=== PATIENT | male | born 1975 | race Caucasian/White ===

== ENCOUNTER 2021-10-15 14:30 | Inpatient (IN) | payer MEDICAID, SELFPAY ==
[2021-10-15 14:35] VITALS: BP 209/179; PULSE 103; RESP 20; TEMP 37.1; O2SAT 98; BMI 21.9
[2021-10-15 14:48] VITALS: BP 157/111; PULSE 110; RESP 20; O2SAT 97
--- NOTE | 2021-10-15 14:53 | ECG_ITS ---
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 Measurements Intervals [place] Rate: 95 P: 70 LA: 118 QRS: 63 QRSD: 110 T: 71 QT: 340 QTc: 429 Interpretive Statements SINUS RHYTHM WITH SHORT LA INTERVAL Compared to ECG 11/17/2017 08:53:02 Short LA interval now present Intraventricular conduction delay no longer present Electronically Signed On 10-15-2021 18:38:09 CDT by Angelita Moulton M.D. [id number]
[2021-10-15 14:55] LABS: Basophils # 0.1 10^3/uL (0.0-0.1); Basophils % 0.8 %; Eosinophils # 0.3 10^3/uL (0.0-0.8); Eosinophils % 3.4 %; Hematocrit 42.9 % (42.0-52.0); Hemoglobin 14.7 g/dL (11.7-16.6); Lymphocytes % 23.8 %; Mean Corpuscular HGB Conc 34.3 g/dL (30.0-36.0); Mean Corpuscular Hemoglobin 33.2 pg (28.0-34.0); Mean Corpuscular Volume 96.8 fl (80-94); Mean Platelet Volume 9.3 fL (7.4-10.4); Monocytes # 0.7 10^3/uL (0.2-0.9); Monocytes % 8.9 %; Nucleated Red Blood Cells % 0 %; Platelet Count 289 10^3/cmm (130-400); Red Blood Count 4.43 10^6/uL (4.1-5.3); Red Cell Distribution Width 12.6 % (12.1-15.1); White Blood Count 8.3 10^3/uL (4.0-10.0)
--- NOTE | 2021-10-15 14:55 | ED.C_ITS ---
HPI - Psych General: Chief Complaint: Psychiatric Symptoms Stated Complaint: PSYCH EVAL Time Seen by Provider: 10/15/21 14:31 Source: patient, EMS and police Mode of arrival: EMS Limitations: no limitations History of Present Illness: This patient was transported via EMS with police escort due to bizarre behavior. Police were called to the scene and found the patient in a parking lot of a deserted building making many nonsensical statements and alleging that he was involved with homeland security and other similar pro proclamation's. Police also noted that he was waving around what appeared to be a handgun. He complied with the request that he put the object down which was later discovered to be a air soft CO2 pistol. And still continued to make rather bizarre statements for which they have provided an affidavit. They notified EMS who arrived on scene and assisted with transportation to the emergency department. The patient states to me that he left [facility] in route to [facility]. States he was headed to [place] as well to visit family prior to leaving for [place]. 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 He does admit to having mental health issues with prior hospitalizations. He states he has been taking his Seroquel is clonazepam as well as 1 other medication faithfully but has been weaning those down somewhat. He states he has been doing this in concert with his prescribing physician. He apparently also uses CBD oil in an attempt to treat himself. He states he has had a drinking problem the past but only drinks rarely at this time. He denies any other illicit substances. He further denies any thoughts of self-harm. He denies any recent illness cough cold fever trauma etc. MD complaint: altered mental status Associated symptoms: Reports delusions; Deny homicidal ideation or suicidal ideation Treatments prior to arrival: physical restraints Review of Systems Const: Denies: fever(s) or chills Eyes: Denies: change in vision ENMT: Denies: throat pain, odynophagia, disequilibrium or nasal congestion Card: Denies: chest pain, palpitations, irregular heart rhythm or edema Resp: Denies: dyspnea, productive cough or non-productive cough GI: Denies: nausea, vomiting or diarrhea : Denies: flank pain, difficulty urinating or dysuria Musc: Denies: neck pain, back pain, extremity pain or extremity swelling Skin/Breast: Denies: rash Neuro: Denies: headache(s), numbness in extremities, weakness in extremities, dizziness, vertigo or confusion Psych: Reports: anxiety, mood swings, panic attacks, paranoia and difficulty concentrating; Denies: suicidal ideation or homicidal ideation Endo: Denies: polyuria Physical Exam Narrative: EXAM NARRATIVE: The patient makes good eye contact and is cooperative throughout the interview and examination. His speech is rather rapid and pressured pressured and displays some loosening of associations. Const: COMMON NORMALS: average body habitus, healthy appearing and alert GENERAL APPEARANCE: cooperative and anxious ORIENTATION/CONSCIOUSNESS: Yes awake, Yes oriented to person and Yes oriented to place HENMT: COMMON NORMALS: normocephalic and atraumatic HEAD & SCALP: normocephalic and atraumatic FACE & SINUS: normal facial exam Eye: COMMON NORMALS: Equal, round and reactive pupils present, EOMs intact bilaterally and conjunctivae normal CONJUNCTIVA: Yes conjunctivae normal PUPIL: Yes Equal, round and reactive pupils present Neck/C-Spine: COMMON NORMALS: full ROM and supple Chest: COMMONS NORMALS: normal inspection of the chest Resp: COMMON NORMALS: normal respiratory effort, No retractions, No use of accessory muscles and clear to auscultation bilaterally AUSCULTATION: clear to auscultation bilaterally Cardio: COMMON NORMALS: regular rate, regular rhythm, No murmurs present (Cardio) and Peripheral pulses 2+ throughout RATE: regular rate RHYTHM: r egular rhythm PERIPHERAL PULSES: Peripheral pulses 2+ throughout GI: COMMON NORMALS: Normal to inspection, nondistended, normoactive bowel sounds present, Soft to palpation and non-tender PALPATION: Yes Soft to palpation : COMMON NORMALS: Yes no CVA tenderness BLADDER/KIDNEY EXAM: Yes no CVA tenderness PENIS: normal penis and circumcised Back/Pelvis: COMMON NORMALS: no CVA tenderness, thoracic and lumbar spine normal to inspection, no thoracic nor lumbar tenderness and thoraco-lumbar ROM normal Extremity: COMMON NORMALS: normal to inspection, full ROM, capillary refill normal, no calf tenderness and no pedal edema Neuro: COMMON NORMALS: moves all extremities, no focal motor deficits and no sensory deficits noted SENSORIUM/ORIENTATION: Yes alert, Yes oriented to person and Yes oriented to place CRANIAL NERVES: Yes CN normal except as noted Psych: COMMON NORMALS: cooperative APPEARANCE: Yes disheveled ATTITUDE: Yes engaged ACTIVITY/MOTOR BEHAVIOR: Yes appropriate eye contact and Yes fidgeting SPEECH: Yes excessive and Yes rapid MOOD & AFFECT: Yes anxious THOUGHT PROCESS: disorganized and Loose association thought process present THOUGHT CONTENT: Yes delusions ATTENTION/CONCENTRATION: Yes attention grossly intact Skin: COMMON NORMALS: no rashes or lesions noted, no wounds and turgor normal GENERAL SKIN EXAM: no rashes or lesions noted and turgor normal Course Reevaluation(s): Reevaluation #1: Patient remains cooperative and stable while work-up ongoing Time: 17:06 Reevaluation #2: Patient seems to get worked up when he watches the news on television which elevates his blood pressure. He has not taken any of his usual medications today. We will give him his Klonopin now and follow his response. Time: 17:44 Consultations: Consultation #1: Consulted with Dr. Ortiz who agreed to accept the patient for admission Time: 17:48 Vital Signs: Vital signs: Vital Signs Temperature 98.7 F 10/15/21 14:35 Pulse Rate 98 10/15/21 17:18 Respiratory Rate 18 10/15/21 17:18 Blood Pressure 184/112 10/15/21 17:18 Pulse Oximetry 97 10/15/21 17:18 Oxygen Delivery Me thod 10/15/21 17:18 MDM - Psych Medical Decision Making Patient transported to the emergency department by EMS after police encountered him with making bizarre statements and bizarre behaviors. He was evaluated in the emergency department and found to not have any evidence of acute intracranial hemorrhage etc. no other biochemical abnormalities noted at this time. Blood pressure was noted to be intermittently elevated in the emergency department and I think this will not require any primary intervention other than mood stabilization. He does have affidavits available from Police Department regarding his behavior. Medical Records I reviewed the patient's medical records. Lab Data I reviewed the patient's lab results. : 10/15/21 14:52 10/15/21 14:[address] 10/15/21 15:05 IMPRESSION: 1. No acute intracranial findings. 2. Sinus findings as above. Laboratory Results WBC 8.3 10^3/uL (4.0-10.0) 10/15/21 14:52 RBC 4.43 10^6/uL (4.1-5.3) 10/15/21 14:52 Hgb 14.7 g/dL (11.7-16.6) 10/15/21 14:52 Hct 42.9 % (42.0-52.0) 10/15/21 14:52 MCV 96.8 fl (80-94) H 10/15/21 14:52 MCH 33.2 pg (28.0-34.0) 10/15/21 14:52 MCHC 34.3 g/dL (30.0-36.0) 10/15/21 14:52 RDW 12.6 % (12.1-15.1) 10/15/21 14:52 Plt Count 289 10^3/cmm (130-400) 10/15/21 14:52 MPV 9.3 fL (7.4-10.4) 10/15/21 14:52 Neut % (Auto) 63.0 % 10/15/21 14:52 Lymph % (Auto) 23.8 % 10/15/21 14:52 [place] % (Auto) 8.9 % 10/15/21 14:52 Eos % (Auto) 3.4 % 10/15/21 14:52 Baso % (Auto) 0.8 % 10/15/21 14:52 Neut # (Auto) 5.20 10^3/uL (1.8-7.7) 10/15/21 14:52 Lymph # (Auto) 2.0 10^3/uL (0.8-4.8) 10/15/21 14:52 [place] # (Auto) 0.7 10^3/uL (0.2-0.9) 10/15/21 14:52 Eos # (Auto) 0.3 10^3/uL (0.0-0.8) 10/15/21 14:52 Baso # (Auto) 0.1 10^3/uL (0.0-0.1) 10/15/21 14:52 Nucleated RBC % (auto) 0 % 10/15/21 14:52 Nucleated RBCs # 0.0 /100WBC 10/15/21 14:52 Sodium 141 mmol/L (136-145) 10/15/21 14:52 Potassium 3.7 mmol/L (3.5-5.1) 10/15/21 14:52 Chloride 103 mmol/L (98-107) 10/15/21 14:52 Carbon Dioxide 26 mmol/L (22-29) 10/15/21 14:52 Anion Gap 15.7 (5-19) 10/15/21 14:52 BUN 8 mg/dL (6-20) 10/15/21 14:52 Creatinine 0.8 mg/dL (0.7-1.2) 10/15/21 14:52 GFR Calculation 104.5 mL/min (90-130) 10/15/21 14:52 Glucose 124 mg/dL (65-115) H 10/15/21 14:52 POC Glucose 116 mg/dL (70-110) H 10/15/21 15:13 Calculated Osmolality 292 mOsm/kg (285-295) 10/15/21 14:52 Calcium 9.4 mg/dL (8.5-10.5) 10/15/21 14:52 Total Bilirubin 0.2 mg/dL (0.15-1.2) 10/15/21 14:52 AST 15 U/L (0-40) 10/15/21 14:52 ALT 11 U/L (0-41) 10/15/21 14:52 Alkaline Phosphatase 81 IU/L (40-130) 10/15/21 14:52 Total Protein 6.8 g/dL (6.6-8.7) 10/15/21 14:52 Albumin 4.6 g/dL (3.5-5.2) 10/15/21 14:52 Globulin 2.2 g/dL (1.3-4.6) 10/15/21 14:52 Salicylates < 0.3 mg/dL (3-10) L 10/15/21 14:52 Urine Opiates Screen Negative ng/mL (Negative) 10/15/21 14:47 Acetaminophen < 5.0 ug/mL (10-30) L 10/15/21 14:52 Ur Barbiturates Screen Negative ng/mL (Negative) 10/15/21 14:47 Ur Phencyclidine Scrn Negative ng/mL (Negative) 10/15/21 14:47 Ur Amphetamines Screen Negative ng/mL (Negative) 10/15/21 14:47 U Benzodiazepines Scrn Negative ng/mL (Negative) 10/15/21 14:47 Urine Cocaine Screen Negative ng/mL (Negative) 10/15/21 14:47 U Marijuana (THC) Screen Positive ng/mL (Negative) H 10/15/21 14:47 Ethyl Alcohol < 10 mg/dL (0-10) 10/15/21 14:52 EKG Data EKG 1: I personally reviewed and interpreted this EKG as follows: EKG interpretation time: 15:04 Interpretation: EKG shows ventricular rate of 95 bpm. Has some slight shortening of the AL interval but no clear delta waves noted. QRS duration is normal and the QTC is normal. Normal axis. No acute ST-T wave changes. Discharge Plan Discharge Patient Disposition: Admitted As Inpatient Clinical Impression: Acute psychosis, Bipolar disorder, Elevated blood pressure, situational Condition: Stable Prescriptions: No Action clonazepam 0.5 mg tablet 0.25 - 0.5 mg PO DAILY sertraline 100 mg tablet 100 mg PO DAILY baclofen 20 mg tablet 20 mg PO TID quetiapine 400 mg tablet 600 mg PO BEDTIME Referrals: Kris Kumar MD [Primary Care Provider] - Coding Level of Care Code ED Assistance Coordinator for Chg Fwd Exam Comprehensive
--- NOTE | 2021-10-15 15:05 | CTR_ITS ---
PROCEDURE INFORMATION: Exam: CT Head Without Contrast Exam date and time: 10/15/2021 4:02 PM Age: 45 years old Clinical indication: Altered mental status/memory loss; Additional info: AMS TECHNIQUE: Imaging protocol: Computed tomography of the head without contrast. Radiation optimization: All CT scans at this facility use at least one of these dose optimization techniques: automated exposure control; mA and/or kV adjustment per patient size (includes targeted exams where dose is matched to clinical indication); or iterative reconstruction. COMPARISON: No relevant prior studies available. RADIATION DOSE METRICS: Total DLP (mGy-cm): 1055.2 FINDINGS: Brain: Normal. No hemorrhage. Unremarkable white matter. No mass effect. Cerebral ventricles: No ventriculomegaly. Paranasal sinuses: Minimal sphenoid, ethmoid and frontal sinus mucosal thickening. No air-fluid level. Mastoid air cells: Visualized mastoid air cells are well aerated. Bones/joints: Unremarkable. No acute fracture. Soft tissues: Unremarkable. CT/CT head wo con* [id number] IMPRESSION: 1. No acute intracranial findings. 2. Sinus findings as above.
[2021-10-15 15:18] LABS: Glucose Point of Care 116 mg/dL (70-110)
[2021-10-15 15:23] LABS: Alanine Aminotransferase 11 U/L (0-41); Albumin Level 4.6 g/dL (3.5-5.2); Alkaline Phosphatase 81 IU/L (40-130); Anion Gap 15.7 (5-19); Aspartate Amino Transferase 15 U/L (0-40); Blood Urea Nitrogen 8 mg/dL (6-20); Calcium 9.4 mg/dL (8.5-10.5); Carbon Dioxide 26 mmol/L (22-29); Chloride 103 mmol/L (98-107); Creatinine Clr Calc Pharmacy 107.3058; Globulin 2.2 g/dL (1.3-4.6); Glomerular Filtration Rate 104.5 mL/min (90-130); Glucose 124 mg/dL (65-115); Osmolality Calculated 292 mOsm/kg (285-295); Potassium 3.7 mmol/L (3.5-5.1); Sodium 141 mmol/L (136-145); Total Bilirubin 0.2 mg/dL (0.15-1.2); Total Protein 6.8 g/dL (6.6-8.7)
[2021-10-15 15:24] LABS: Acetaminophen < 5.0 ug/mL (10-30); Alcohol Level < 10 mg/dL (0-10); Salicylate < 0.3 mg/dL (3-10)
[2021-10-15 15:28] LABS: Amphetamines Screen Urine Negative (Negative); Barbiturates Screen Urine Negative (Negative); Benzodiazepines Screen Urine Negative (Negative); Cocaine Screen Urine Negative (Negative); Opiate Screen Urine Negative (Negative); PCP Screen Urine Negative (Negative); THC Screen Urine Positive (Negative)
[2021-10-15 17:18] VITALS: BP 184/112; PULSE 98; RESP 18; O2SAT 97
[2021-10-15] MEDS: CLONazepam 0.5 mg Tablet PO (18:02)
[2021-10-15 18:20] LABS: SARS Covid-2 Antigen Negative (Negative)
[2021-10-15] MEDS: OLANZapine 5 mg ODT PO (18:30)
[2021-10-15 19:19] VITALS: BP 114/79; PULSE 80; RESP 18; O2SAT 97
[2021-10-15 19:43] VITALS: BP 114/79; PULSE 80; RESP 18; O2SAT 97
[2021-10-15 20:39] VITALS: BP 116/84; PULSE 86; RESP 16; TEMP 37; O2SAT 96
[2021-10-16] MEDS: acetaminophen 325 mg Tablet 650 MG PO (02:32)
--- NOTE | 2021-10-16 02:36 | PC.NURSE ---
Pt woke up and this nurse was able to glean that he was not allergic to all medications. Patient states, most psych meds make me sleepy so that is an allergy. this nurse told patient I needed to know the medications that are life threatening or cause physical issues like rashes. Patient then stated, my only true allergy is tramadol. the other stuff just makes me feel funny.
[2021-10-16] MEDS: haloperidol 5 mg Tablet PO ×3 (03:06→21:41)
--- NOTE | 2021-10-16 03:11 | PC.NURSE ---
patient woke up and asked this nurse to write 4 post it notes they are as follows: 1st post it- pt states these are things I need from you guys today. 1) someone that can write for me because my wrist is hurt from the handcuffs 2)a lot of white paper 3)blue construction paper 4) my vaccine key customer leader who is my chelseadad Danny Clark 5) press charges on officers who brought me here 6)federal agents will know the officer in [place] to prosecute. I can't talk about this one. 7)need help from Emmett Fofana, Cleo Alonzo, Himanshu Whittaker and a child actor. These are the only people who can help. The regular citizens can't help they are zombies but not literal zombies. 8)I need a official court interpreter and audio recorder 2nd post it- 1)wastefulness 2)greed 3)celebrities 4)excess 5)trends 3rd post it- 1)change gun laws 2)55th amendment 3)change legal age to own firearms to 30 years old. 4) ammunition $10,000/box 5)22 caliber rifles are the only one you can have in a household. 4th post it- HOMELESSNESS (in large letters because it is the most important note and should be by itself) All of this was verbalized by the patient who asked this nurse to write these things down and make it happen on dayshift.
[2021-10-16 05:57] VITALS: BP 118/79; PULSE 77; RESP 18; TEMP 36.8; O2SAT 96
[2021-10-16] MEDS: OLANZapine 5 mg ODT PO (10:17)
--- NOTE | 2021-10-16 11:02 | PC.NURSE ---
PT DENIES PAIN. PT VERY PARANOID AND STATES I HEAR VOICES BUT THEY ARE GOOD KIND. DENIES VH AT THIS TIME. DENIES SI BUT DOES STATE HE WANTS TO COMMIT EMOTIONAL HOMICIDE AGAINST SOMEONE ON THE OUTSIDE. ANXIETY NOTED. DECLINES ANXIETY MEDS AT THIS TIME. EDUCATED ON PRN MEDS AND AVAILABILITY. ALL QUESTIONS ANSWERED AND SUPPORT VOICED.
--- NOTE | 2021-10-16 11:03 | PC.NURSE ---
PRN MEDICATION PT WAS OBSERVED LAYING IN OTHER ROOM IN OTHER PTS BED WITH THE COVERS PULLED OVER HEAD, SHAKING, YELLING AND CRYING OUT LOUD. THIS RN PULLED COVERS DOWN AND ASKED WHAT WAS WRONG. PT STATES BELLE. PT WAS ASSISTED TO HIS ROOM, OFFERED ANXIETY MEDS AND SOMETHING TO DRINK. PT DID RECEIVE 5 MG OF ZYDIS ORDERED FOR AGITATION AND ANXIETY. PT THEN LAID DOWN AND RESTING UNTIL GROUP STARTED AT 1100. ALL QUESTIONS ANSWERED AND SUPPORT VOICED.
[2021-10-16 14:00] VITALS: BP 118/79; PULSE 77; RESP 18; TEMP 36.8; O2SAT 96
--- NOTE | 2021-10-16 14:09 | PC.NURSE ---
PRN MEDICATION PT VERY AGITATED AND TOOK CRAYON WRITING ALL OVER THE DAY AREA, PHONE AREA AND HALLWAY. PT WAS VERBALLY REDIRECTED WITH EFFECTIVENESS AND DID PUT THE CRAYON AWAY. PAPER WAS GIVEN TO THE PATIENT SO HE COULD WRITE DOWN WHAT HE WANTED TO WRITE DOWN. HALDOL 5 MG PO WAS GIVEN FOR ANXIETY AND AGITATION.
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
[2021-10-16] MEDS: LORazepam 2 mg/mL INJ 1 mL IM (15:35)
[2021-10-16] MEDS: haloperidol inj 5 mg/mL INJ 1 mL IM (15:35)
[2021-10-16] MEDS: diphenhydrAMINE 50 mg/mL SDV 1mL IM (15:35)
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
[2021-10-16 19:59] VITALS: BP 106/64; PULSE 77; RESP 16; TEMP 36.7; O2SAT 98
[2021-10-16] MEDS: trazodone 50 mg Tablet PO (21:41)
[2021-10-17 06:00] VITALS: BP 128/83; PULSE 89; RESP 16; O2SAT 96
[2021-10-17] MEDS: paliperidone ER 6 mg Tablet PO (11:30)
--- NOTE | 2021-10-17 11:50 | PC.NURSE ---
Patient was outside during group measuring the brick with a crayon. Patient told sitter that he was measuring the height to see how far he would have to jump to get over the bricks.
[2021-10-17 13:45] VITALS: BP 143/90; PULSE 93; RESP 18; TEMP 36.6; O2SAT 96
--- NOTE | 2021-10-17 13:55 | P.NPUPN_ITS ---
Subjective NPU Subjective: Patient presents today more open to conversation. We were able to talk about how long his struggle has been to get his mind right. He reports he has not had success with medication but we also discussed the fact that in certain mindset when you really do not want to take a medication that may translate to you believing the medication was a problem and really was your thoughts about the medication that are the problem. He requested I explained to him the medications I would want to use and why and he became tearful reporting he wants to do better and be well and that he was open to a trial of Invega after discussion of the risks, benefits and alternatives he understood and agreed to proceed as is documented in this note. We also discussed the ultimate plan was to get on the long-acting injectable. Mental Status Exam MSE Comments: This is a slender well-developed white male with hospital scrubs on with limited grooming and adequate eye contact. No abnormal movements except for psychomotor retardation. Mostly cooperative with exam in mild distress. Speech was more spontaneous and mostly normal rate and decreased volume. Mood described as okay, affect odd and at times tearful. Thought process mostly organized. Thought content: Patient denied suicidal or homicidal ideation, there were no delusions reported but clear bizarre delusions noted, he denied auditory or visual hallucinations but at times appeared to be attending to internal stimuli. Attention and concentration were improving and memory was more reliable but none were formally tested. He is alert and oriented x 3. Insight, judgment and impulse control are all limited. Vitals/I&O/Wt Last Vital Signs Temp 98 F 10/17/21 13:45 Pulse 93 10/17/21 13:45 Resp 18 10/17/21 13:45 BP 143/90 10/17/21 13:45 Pulse Ox 96 10/17/21 13:45 O2 Del Method 10/17/21 13:45 Weight last 48 hrs Weight 63.503 kg Data NPU : 10/15/21 14:52 10/15/21 14:52 A&P Assessment and plan (1) Acute psychosis: Status: Acute (2) Bipolar disorder: Status: Acute (3) Elevated blood pressure, situational: Status: Acute Plan This is a 45-year-old white male with and endorsed significant history of psychiatric inpatient treatment but it is unclear whether he has had steady outpatient treatment with reports of significant psychotropic drug exposure who presents clearly psychotic and downplaying the need for any interventions. 1. Continue current medication. Started Seroquel 100 mg at night and initiated Invega 6 mg p.o. daily with a plan to move to the injection once improvement is noted. 2. Continue every 15 minute checks for safety. 3. Encourage individual, group and milieu therapies. 4. Encourage sober living treatment after discharge at the highest level of care to which he is willing to commit. 5. Initiated 96-hour hold. Involuntary Hold Information 96 Hour Hold: 96 Hour Involuntary Admission: No Attestations NPU Medical Necessity Statement*: Inpatient hospitalization is medically necessary and the clinically appropriate intervention at this time. We will monitor medication to make changes as indicated. Likely length of stay 6-9 days. Coding Level of Care Code Acute Zinc Chloride Operator for May Johnson Diagnoses Acute psychosis F23 Bipolar disorder F31.9 Elevated blood pressure, situational R03.0
[2021-10-17] MEDS: hyDROXYzine 25 mg Capsule 50 MG PO (14:00)
--- NOTE | 2021-10-17 14:06 | PC.NURSE ---
hYDROXIZINE 50 MG PO GIVEN FOR C/O INCREASED ANXIETY.
[2021-10-17 19:48] VITALS: BP 158/100; PULSE 92; RESP 16; TEMP 36.6; O2SAT 97
[2021-10-17] MEDS: benztropine 1 mg Tablet PO (20:55)
[2021-10-17] MEDS: quetiapine 100 mg Tablet PO (20:55)
[2021-10-17 21:18] VITALS: BP 120/69; PULSE 83
[2021-10-18 05:57] VITALS: BP 136/82; PULSE 78; RESP 16; TEMP 36.6; O2SAT 96
[2021-10-18 06:00] VITALS: BMI 21.9
[2021-10-18] MEDS: paliperidone ER 6 mg Tablet PO (09:41)
[2021-10-18] MEDS: hyDROXYzine 25 mg Capsule 50 MG PO ×2 (09:41→16:26)
--- NOTE | 2021-10-18 09:47 | PC.NURSE ---
Patient at nurses station with c/o anxiety. Hydroxyzine 50 mg po given for this.
--- NOTE | 2021-10-18 11:54 | P.NPUPN_ITS ---
Subjective NPU Subjective: Patient presents today reporting that things are going okay. He reports when he first took the Invega that he felt some weird way but we discussed the power of the mind when you are not really wanting to do something. He agreed that is having no side effects at this time. Report of continued odd behaviors from time to time but those have lessened. Mental Status Exam MSE Comments: This is a slender well-developed white male with hospital scrubs on with limited grooming and adequate eye contact. No abnormal movements except for mild psychomotor retardation. More cooperative with exam in no acute distress. Speech was more spontaneous and mostly normal rate and decreased volume. Mood described as a little better, affect less odd and slightly subdued l. Thought process mostly organized. Thought content: Patient denied suicidal or homicidal ideation, there were no delusions reported but clear bizarre delusions noted, he denied auditory or visual hallucinations but at times appeared to be attending to internal stimuli. Attention and concentration were improving and memory was more reliable but none were formally tested. He is alert and oriented x 3. Insight, judgment and impulse control are all limited. Vitals/I&O/Wt Last Vital Signs Temp 97.9 F 10/18/21 05:57 Pulse 78 10/18/21 05:57 Resp 16 10/18/21 05:57 BP 136/82 10/18/21 05:57 Pulse Ox 96 10/18/21 05:57 O2 Del Method 10/18/21 05:57 Weight last 48 hrs Weight 63.503 kg Data NPU : 10/15/21 14:52 10/15/21 14:52 A&P Assessment and plan (1) Acute psychosis: Status: Acute (2) Bipolar disorder: Status: Acute (3) Elevated blood pressure, situational: Status: Acute Plan This is a 45-year-old white male with and endorsed significant history of psychiatric inpatient treatment but it is unclear whether he has had steady outpatient treatment with reports of significant psychotropic drug exposure who presents clearly psychotic and downplaying the need for any interventions. 1. Continue current medication. Started Seroquel 100 mg at night and initiated Invega 6 mg p.o. daily with a plan to move to the injection once improvement is noted. 2. Continue every 15 minute checks for safety. 3. Encourage individual, group and milieu therapies. 4. Encourage sober living treatment after discharge at the highest level of care to which he is willing to commit. 5. Initiated 96-hour hold. Involuntary Hold Information 96 Hour Hold: 96 Hour Involuntary Admission: No Attestations NPU Medical Necessity Statement*: Inpatient hospitalization is medically necessary and the clinically appropriate intervention at this time. We will monitor medication to make changes as indicated. Likely length of stay 5-8 days. Coding Level of Care Code Acute Chief Environmental Commitment Officer for May Johnson Diagnoses Acute psychosis F23 Bipolar disorder F31.9 Elevated blood pressure, situational R03.0
[2021-10-18] MEDS: benztropine 1 mg Tablet PO (13:10)
[2021-10-18] MEDS: nicotine 2 mg Gum BUCCAL (13:10)
--- NOTE | 2021-10-18 13:14 | PC.NURSE ---
Patient at the nurses station with c/o racing thoughts and unable to rest. AIMS score 2. Congetin 1mg po given
[2021-10-18 14:00] VITALS: BP 140/89; PULSE 81; RESP 20; TEMP 36.6; O2SAT 98
--- NOTE | 2021-10-18 16:35 | PC.NURSE ---
patient with c/o anxiety due to parents visitation. Patient cesilia zydis 5 mg sl for this.
[2021-10-18] MEDS: quetiapine 100 mg Tablet PO (19:59)
[2021-10-18 20:26] VITALS: BP 125/78; PULSE 89; RESP 17; TEMP 36.9; O2SAT 94
[2021-10-18 21:00] VITALS: BP 125/78; PULSE 89; RESP 17; TEMP 36.9; O2SAT 94
[2021-10-19 06:00] VITALS: BP 147/93; PULSE 86; RESP 17; TEMP 36.8; O2SAT 94
[2021-10-19] MEDS: paliperidone ER 6 mg Tablet PO (08:26)
--- NOTE | 2021-10-19 10:56 | P.NPUPN_ITS ---
Subjective NPU Subjective: Patient presents today reporting that he feels the Invega is helping. He is starting to think about discharge and where he needs to be. We discussed how critical it is for him to actually be stable when he discharges and not just be a little better. We also discussed the vision of the treatment team that we consider the long-acting version of the Invega for his best chance for success moving forward. He reported being open to suggestions but not clear yet whether he will take the injection. Mental Status Exam MSE Comments: This is a slender well-developed white male with hospital scrubs on with limited grooming and adequate eye contact. No abnormal movements except for mild psychomotor retardation. More cooperative with exam in no acute distress. Speech was more spontaneous and mostly normal rate and decreased volume. Mood described as better, affect less odd and less subdued. Thought process mostly organized. Thought content: Patient denied suicidal or homicidal ideation, there were no delusions reported but clear bizarre delusions noted, he denied auditory or visual hallucinations but at times appeared to be attending to internal stimuli. Attention and concentration were improving and memory was more reliable but none were formally tested. He is alert and oriented x 3. Insight, judgment and impulse control are all limited. Vitals/I&O/Wt Last Vital Signs Temp 98.3 F 10/19/21 06:00 Pulse 86 10/19/21 06:00 Resp 17 10/19/21 06:00 BP 147/93 10/19/21 06:00 Pulse Ox 94 10/19/21 06:00 O2 Del Method 10/19/21 06:00 Weight last 48 hrs Weight 63.503 kg Data NPU : 10/15/21 14:52 10/15/21 14:52 A&P Assessment and plan (1) Acute psychosis: Status: Acute (2) Bipolar disorder: Status: Acute (3) Elevated blood pressure, situational: Status: Acute Plan This is a 45-year-old white male with and endorsed significant history of psychiatric inpatient treatment but it is unclear whether he has had steady outpatient treatment with reports of significant psychotropic drug exposure who presents clearly psychotic and downplaying the need for any interventions. 1. Continue current medication. Started Seroquel 100 mg at night and initiated Invega 6 mg p.o. daily with a plan to move to the injection once improvement is noted. We will consider the 234 mg IM to the deltoid loading dose of Invega Sustenna tomorrow. 2. Continue every 15 minute checks for safety. 3. Encourage individual, group and milieu therapies. 4. Encourage sober living treatment after discharge at the highest level of care to which he is willing to commit. 5. Initiated 96-hour hold. Involuntary Hold Information 96 Hour Hold: 96 Hour Involuntary Admission: No Attestations NPU Medical Necessity Statement*: Inpatient hospitalization is medically necessary and the clinically appropriate intervention at this time. We will monitor medication to make changes as indicated. Likely length of stay 4-7 days. Coding Level of Care Code Acute Family Centered Specialist for Letitiag Fwd Diagnoses Acute psychosis F23 Bipolar disorder F31.9 Elevated blood pressure, situational R03.0
[2021-10-19 14:00] VITALS: BP 148/93; PULSE 73; RESP 20; TEMP 36.6; O2SAT 97
[2021-10-19] MEDS: trazodone 50 mg Tablet PO (19:51)
[2021-10-19] MEDS: quetiapine 100 mg Tablet PO (19:52)
[2021-10-19] MEDS: acetaminophen 325 mg Tablet 650 MG PO (19:53)
[2021-10-19 20:08] VITALS: BP 147/85; PULSE 81; RESP 17; TEMP 36.3; O2SAT 95
[2021-10-20 06:00] VITALS: BP 150/82; PULSE 76; RESP 15; TEMP 36.4; O2SAT 96
[2021-10-20] MEDS: paliperidone ER 6 mg Tablet PO (09:31)
[2021-10-20 13:21] VITALS: BP 161/80; PULSE 78; RESP 16; TEMP 36.7; O2SAT 98
[2021-10-20] MEDS: ibuprofen 600 mg Tablet PO (15:38)
--- NOTE | 2021-10-20 16:43 | P.NPUPN_ITS ---
Subjective NPU Subjective: Patient presents today reporting that he is feeling better. He reports that from his perspective he would be open to going home or staying depending on the treatment team's believes. We discussed the fact that long- term it would seem that the best decision would be for him to engage in a long- acting injectable and we discussed getting that tomorrow after discussion of the risks, benefits and alternatives he understood and agreed to proceed as is documented in this note. He denies any side effects of the medication and reported he was feeling some cognitive clarity returning. Mental Status Exam MSE Comments: This is a slender well-developed white male with hospital scrubs on with limited grooming and adequate eye contact. No abnormal movements except for mild psychomotor retardation. More cooperative with exam in no acute distress. Speech was more spontaneous and mostly normal rate and decreased volume. Mood described as better, affect congruent. Thought process mostly organized. Thought content: Patient denied suicidal or homicidal ideation, there were no delusions reported and no clear delusions noted, he denied auditory or visual hallucinations but at times appeared to be attending to internal stimuli. Attention and concentration were improving and memory was more reliable but none were formally tested. He is alert and oriented x 3. Insight, judgment and impulse control are all limited. Vitals/I&O/Wt Last Vital Signs Temp 97.9 F 10/20/21 20:13 Pulse 93 10/20/21 20:13 Resp 16 10/20/21 20:13 BP 158/78 10/20/21 20:13 Pulse Ox 99 10/20/21 20:13 O2 Del Method 10/20/21 20:13 Data NPU : 10/15/21 14:52 10/15/21 14:52 A&P Assessment and plan (1) Acute psychosis: Status: Acute (2) Bipolar disorder: Status: Acute (3) Elevated blood pressure, situational: Status: Acute Plan This is a 45-year-old white male with and endorsed significant history of psychiatric inpatient treatment but it is unclear whether he has had steady outpatient treatment with reports of significant psychotropic drug exposure who presents clearly psychotic and downplaying the need for any interventions. 1. Continue current medication. Started Seroquel 100 mg at night and initiated Invega 6 mg p.o. daily with a plan to move to the injection once improvement is noted. We will initiate the 234 mg IM to the deltoid loading dose of Invega Sustenna tomorrow. 2. Continue every 15 minute checks for safety. 3. Encourage individual, group and milieu therapies. 4. Encourage sober living treatment after discharge at the highest level of care to which he is willing to commit. 5. Initiated 96-hour hold. Involuntary Hold Information 96 Hour Hold: 96 Hour Involuntary Admission: No Attestations NPU Medical Necessity Statement*: Inpatient hospitalization is medically necessary and the clinically appropriate intervention at this time. We will monitor medication to make changes as indicated. Likely length of stay 3-6 days. 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
[2021-10-20] MEDS: quetiapine 100 mg Tablet PO (19:52)
[2021-10-20] MEDS: OLANZapine 5 mg ODT PO (19:54)
[2021-10-20 20:13] VITALS: BP 158/78; PULSE 93; RESP 16; TEMP 36.6; O2SAT 99
[2021-10-20] MEDS: hyDROXYzine 25 mg Capsule 50 MG PO (22:33)
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
[2021-10-21 06:00] VITALS: BP 144/76; PULSE 84; RESP 17; TEMP 36.3; O2SAT 96
[2021-10-21] MEDS: paliperidone ER 6 mg Tablet PO (08:03)
[2021-10-21 14:00] VITALS: BP 164/93; PULSE 77; RESP 16; TEMP 36.7; O2SAT 95
--- NOTE | 2021-10-21 16:26 | P.NPUPN_ITS ---
Subjective NPU Subjective: TenderPatient presents today continuing to report each day. He is very invested and getting the Invega Sustenna injection and the possibilities of possibly decreasing the amount of shots he has per year. He is agreeable that an injection is the best way for him to manage what has been an unmanageable condition for many portions of his life. He is invested in following through with his treatment given how he is feeling better and he wants to be successful in his job that he is supposed to start in a couple weeks. We are awaiting the Invega Sustenna to be available he will take the injection soon as it is available. Mental Status Exam MSE Comments: This is a slender well-developed white male with hospital scrubs on with limited grooming and adequate eye contact. No abnormal movements except for mild psychomotor retardation. More cooperative with exam in no acute distress. Speech was more spontaneous and mostly normal rate and decreased volume. Mood described as better, affect congruent. Thought process mostly organized. Thought content: Patient denied suicidal or homicidal ideation, there were no delusions reported and no clear delusions noted, he denied auditory or visual hallucinations but at times appeared to be attending to internal stimuli. Attention and concentration were improving and memory was more reliable but none were formally tested. He is alert and oriented x 3. Insight, judgment and impulse control are all limited. Vitals/I&O/Wt Last Vital Signs Temp 97.4 F L 10/21/21 06:00 Pulse 84 10/21/21 06:00 Resp 17 10/21/21 06:00 BP 144/76 10/21/21 06:00 Pulse Ox 96 10/21/21 06:00 O2 Del Method 10/21/21 06:00 Data NPU : 10/15/21 14:52 10/15/21 14:52 A&P Assessment and plan (1) Acute psychosis: Status: Acute (2) Bipolar disorder: Status: Acute (3) Elevated blood pressure, situational: Status: Acute Plan This is a 45-year-old white male with and endorsed significant history of psychiatric inpatient treatment but it is unclear whether he has had steady outpatient treatment with reports of significant psychotropic drug exposure who presents clearly psychotic and downplaying the need for any interventions. 1. Continue current medication. Started Seroquel 100 mg at night and initiated Invega 6 mg p.o. daily with a plan to move to the injection once improvement is noted. We will initiate the 234 mg IM to the deltoid loading dose of Invega Sustenna as soon as it is available. 2. Continue every 15 minute checks for safety. 3. Encourage individual, group and milieu therapies. 4. Encourage sober living treatment after discharge at the highest level of care to which he is willing to commit. 5. Initiated 96-hour hold. Involuntary Hold Information 96 Hour Hold: 96 Hour Involuntary Admission: No Attestations NPU Medical Necessity Statement*: Inpatient hospitalization is medically necessary and the clinically appropriate intervention at this time. We will monitor medication to make changes as indicated. Likely length of stay 3-6 days. 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
[2021-10-21 20:01] VITALS: BP 150/92; PULSE 83; RESP 16; TEMP 36.5; O2SAT 98
[2021-10-21] MEDS: quetiapine 100 mg Tablet PO (20:33)
[2021-10-22] MEDS: OLANZapine 5 mg ODT PO (01:02)
--- NOTE | 2021-10-22 01:07 | PC.NURSE ---
Medicated pt. with Zyprexa zydis to help him relax.
[2021-10-22 06:00] VITALS: BP 125/76; PULSE 77; RESP 17; TEMP 36.7; O2SAT 97
[2021-10-22] MEDS: paliperidone ER 6 mg Tablet PO (08:04)
[2021-10-22] MEDS: paliperidone palmitate 234 mg Syringe IM (11:02)
[2021-10-22] MEDS: acetaminophen 325 mg Tablet 650 MG PO (11:02)
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
[2021-10-22 14:00] VITALS: BP 149/90; PULSE 81; RESP 18; TEMP 36.6; O2SAT 96
--- NOTE | 2021-10-22 16:14 | P.NPUPN_ITS ---
Subjective NPU Subjective: Patient presents today happy to have gotten the first loading dose of the Invega Sustenna 234 mg IM to the deltoid. We spent most of the conversation discussing figuring out whether he is going to be ready to go and pursue active employment next week. We discussed how the time for the second dose can be truncated, however he will be able to get the medication while he is in [place], his sister supporting him and taking the medication and his stability are all relative unknowns. We discussed taking it a day at a time but he is showing small daily progress. We agreed it may be helpful for his mom to engage with him and offer some sense of his closeness to baseline. Mental Status Exam MSE Comments: This is a slender well-developed white male with hospital scrubs on with limited grooming and adequate eye contact. No abnormal movements except for mild psychomotor retardation. More cooperative with exam in no acute distress. Speech was more spontaneous and mostly normal rate and decreased volume. Mood described as better, affect congruent. Thought process mostly organized. Thought content: Patient denied suicidal or homicidal ideation, there were no delusions reported and no clear delusions noted, he denied auditory or visual hallucinations but at times appeared to be attending to internal stimuli. Attention and concentration were improving and memory was more reliable but none were formally tested. He is alert and oriented x 3. Insight, judgment and impulse control are all limited. Vitals/I&O/Wt Last Vital Signs Temp 98.2 F 10/22/21 19:47 Pulse 74 10/22/21 19:47 Resp 20 H 10/22/21 19:47 BP 151/89 10/22/21 19:47 Pulse Ox 97 10/22/21 19:47 O2 Del Method 10/22/21 19:47 Data NPU : 10/15/21 14:52 10/15/21 14:52 A&P Assessment and plan (1) Acute psychosis: Status: Acute (2) Bipolar disorder: Status: Acute (3) Elevated blood pressure, situational: Status: Acute Plan This is a 45-year-old white male with and endorsed significant history of psychiatric inpatient treatment but it is unclear whether he has had steady outpatient treatment with reports of significant psychotropic drug exposure who presents clearly psychotic and downplaying the need for any interventions. 1. Continue current medication. Started Seroquel 100 mg at night and initiated Invega 6 mg p.o. daily. Given Invega Sustenna 234 mg IM to the deltoid loading dose today. Will discontinue the oral medication. 2. Continue every 15 minute checks for safety. 3. Encourage individual, group and milieu therapies. 4. Encourage sober living treatment after discharge at the highest level of care to which he is willing to commit. 5. Patient is now voluntary. Involuntary Hold Information 96 Hour Hold: 96 Hour Involuntary Admission: No Attestations NPU Medical Necessity Statement*: Inpatient hospitalization is medically necessary and the clinically appropriate intervention at this time. We will monitor medication to make changes as indicated. Likely length of stay 2-5 days. Coding Level of Care Code Acute Supervisor Electronics Assembly for [facility] Diagnoses Acute psychosis F23 Bipolar disorder F31.9 Elevated blood pressure, situational R03.0
[2021-10-22 19:47] VITALS: BP 151/89; PULSE 74; RESP 20; TEMP 36.8; O2SAT 97
[2021-10-22] MEDS: quetiapine 100 mg Tablet PO (20:53)
[2021-10-22] MEDS: hyDROXYzine 25 mg Capsule 50 MG PO (20:53)
[2021-10-23] MEDS: OLANZapine 5 mg ODT PO ×2 (02:03→20:14)
[2021-10-23 06:00] VITALS: BP 158/77; PULSE 85; RESP 18; TEMP 36.8; O2SAT 97
--- NOTE | 2021-10-23 09:56 | PC.NURSE ---
UP IN THE DAY ROOM. DENIES PAIN, DENIES SI/HI AND AVH AT THIS TIME. PT APPEARS TO BE IMPROVING AND VERBALIZES POSITIVE COPING SKILLS FOR ANXIETY AND DEPRESSION. BREATHING TECHNIQUES TAUGHT TO PT AND RETURN DEMONSTRATION COMPLETED. DISCUSSED DC WITH SISTER AND CONCERNS WERE VOICED DUE TO HER BEING AGAINST MEDICATIONS. EDUCATED ON MEDICATION AND NEED TO CONTINUE MEDICATIONS ONCE PT LEAVES. PT DID STATE HE WILL CONTINUE TO TAKE HIS INVEGA SHOT BECAUSE HE KNOWS HE NEEDS IT, AND WANTS TO GET BETTER. ALL QUESTIONS ANSWERED AND SUPPORT VOICED.
[2021-10-23 14:00] VITALS: BP 115/68; PULSE 81; RESP 18; TEMP 36.8; O2SAT 97
--- NOTE | 2021-10-23 16:53 | W.PM.NPUPNS ---
Subjective NPU Subjective: Patient presents today reporting that about Mental Status Exam MSE Comments: This is a slender well-developed white male with hospital scrubs on with limited grooming and adequate eye contact. No abnormal movements. More cooperative with exam in no acute distress. Speech was more spontaneous and mostly normal rate and volume. Mood described as better, affect congruent. Thought process mostly organized. Thought content: Patient denied suicidal or homicidal ideation, there were no delusions reported and no clear delusions noted, he denied auditory or visual hallucinations. Attention and concentration were improving and memory was more reliable but none were formally tested. He is alert and oriented x 3. Insight, judgment and impulse control are all limited. Vitals/I&O/Wt Last Vital Signs Temp 98.2 F 10/23/21 14:00 Pulse 81 10/23/21 14:00 Resp 18 10/23/21 14:00 BP 115/68 10/23/21 14:00 Pulse Ox 97 10/23/21 14:00 O2 Del Method 10/23/21 06:00 Data NPU : 10/15/21 14:52 10/15/21 14:52 A&P Assessment and plan (1) Acute psychosis: Status: Acute (2) Bipolar disorder: Status: Acute (3) Elevated blood pressure, situational: Status: Acute Plan This is a 45-year-old white male with and endorsed significant history of psychiatric inpatient treatment but it is unclear whether he has had steady outpatient treatment with reports of significant psychotropic drug exposure who presents clearly psychotic and downplaying the need for any interventions. 1. Continue current medication. Started Seroquel 100 mg at night and initiated Invega 6 mg p.o. daily. Given Invega Sustenna 234 mg IM to the deltoid loading dose 10/22/21. Discontinued the oral Invega. 2. Continue every 15 minute checks for safety. 3. Encourage individual, group and milieu therapies. 4. Encourage sober living treatment after discharge at the highest level of care to which he is willing to commit. 5. Patient is now voluntary. Involuntary Hold Information 96 Hour Hold: 96 Hour Involuntary Admission: No Attestations NPU Medical Necessity Statement*: Inpatient hospitalization is medically necessary and the clinically appropriate intervention at this time. We will monitor medication to make changes as indicated. Likely length of stay 1-3 days. But likely discharge on Tuesday or Tuesday after the second injection is given. Coding Level of Care Code Acute Residential Support Specialist for [facility] Diagnoses Acute psychosis F23 Bipolar disorder F31.9 Elevated blood pressure, situational R03.0
[2021-10-23] MEDS: quetiapine 100 mg Tablet PO (20:14)
[2021-10-23] MEDS: hyDROXYzine 25 mg Capsule 50 MG PO (20:14)
[2021-10-23 22:00] VITALS: RESP 16
[2021-10-24 05:57] VITALS: BP 140/76; PULSE 93; RESP 18; O2SAT 96
[2021-10-24 14:00] VITALS: BP 153/91; PULSE 91; RESP 17; TEMP 36.6; O2SAT 97
--- NOTE | 2021-10-24 14:13 | W.PM.NPUPNS ---
Subjective NPU Subjective: Patient presents today continuing to show slow and steady improvement. We discussed that we would review the package insert but that the likely plan is for him to get his second injection tomorrow which will be a few days early however will allow him to continue the things [place]. He denied any symptoms or concerns. Mental Status Exam MSE Comments: This is a slender well-developed white male with hospital scrubs on with limited grooming and adequate eye contact. No abnormal movements. More cooperative with exam in no acute distress. Speech was more spontaneous and mostly normal rate and volume. Mood described as pretty good, affect congruent. Thought process mostly organized. Thought content: Patient denied suicidal or homicidal ideation, there were no delusions reported and no clear delusions noted, he denied auditory or visual hallucinations. Attention and concentration were improving and memory was more reliable but none were formally tested. He is alert and oriented x 3. Insight, judgment and impulse control are all improving. Vitals/I&O/Wt Last Vital Signs Temp 97.8 F 10/24/21 14:00 Pulse 91 10/24/21 14:00 Resp 17 10/24/21 14:00 BP 153/91 10/24/21 14:00 Pulse Ox 97 10/24/21 14:00 O2 Del Method 10/24/21 14:00 Data NPU : 10/15/21 14:52 10/15/21 14:52 A&P Assessment and plan (1) Acute psychosis: Status: Acute (2) Bipolar disorder: Status: Acute (3) Elevated blood pressure, situational: Status: Acute Plan This is a 45-year-old white male with and endorsed significant history of psychiatric inpatient treatment but it is unclear whether he has had steady outpatient treatment with reports of significant psychotropic drug exposure who presents clearly psychotic and downplaying the need for any interventions. 1. Continue current medication. Started Seroquel 100 mg at night and initiated Invega 6 mg p.o. daily. Given Invega Sustenna 234 mg IM to the deltoid loading dose 10/22/21. Give Invega Sustenna 156 mg IM to the deltoid tomorrow. 2. Continue every 15 minute checks for safety. 3. Encourage individual, group and milieu therapies. 4. Encourage sober living treatment after discharge at the highest level of care to which he is willing to commit. 5. Plan for discharge tomorrow. Involuntary Hold Information 96 Hour Hold: 96 Hour Involuntary Admission: No Attestations NPU Medical Necessity Statement*: Inpatient hospitalization is medically necessary and the clinically appropriate intervention at this time. We will monitor medication to make changes as indicated. Likely length of stay 1 day. 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
[2021-10-24 20:25] VITALS: BP 135/77; PULSE 78; RESP 18; TEMP 36.6; O2SAT 96
[2021-10-24] MEDS: OLANZapine 5 mg ODT PO (20:27)
[2021-10-24] MEDS: quetiapine 100 mg Tablet PO (20:27)
[2021-10-24] MEDS: hyDROXYzine 25 mg Capsule 50 MG PO (20:27)
[2021-10-25 06:00] VITALS: BP 126/80; PULSE 18; RESP 16; TEMP 36.9
[2021-10-25] MEDS: acetaminophen 325 mg Tablet 650 MG PO (06:54)
[2021-10-25] MEDS: paliperidone palmitate 156 mg Syringe IM (12:19)
--- NOTE | 2021-10-25 12:20 | PC.NURSE ---
MARY SUSTENNA 156 MG GIVEN IM IN LEFT DELTOID PER PHYSICIAN ORDER...PT TOLERATED INJECTION WELL, WILL CONT TO MONITOR INJECTION SITE FOR ANY REDNESS, SWELLING, OR IRRITATION. LOT [id number] EXP 12/2022
[2021-10-25 13:52] VITALS: BP 147/76; PULSE 86; RESP 18; TEMP 36.6; O2SAT 96
[2021-10-25 14:32] VITALS: BP 147/76; PULSE 86; RESP 18; TEMP 36.6; O2SAT 96
--- NOTE | 2021-10-25 14:58 | W.PM.NPUDCS ---
Diagnoses at Discharge Discharge Diagnosis (1) Acute psychosis: Status: Acute (2) Bipolar disorder: Status: Acute (3) Elevated blood pressure, situational: Status: Acute Reason for Visit Reason for Visit: PSYCH EVAL Brief History: History of Present Illness Herber Cruz is a 45 year old male who presented to the emergency department with the following report: Chief Complaint: Psychiatric Symptoms Stated Complaint: PSYCH EVAL Time Seen by Provider: 10/15/21 14:31 Source: patient, EMS and police Mode of arrival: EMS Limitations: no limitations History of Present Illness:?? This patient was transported via EMS with police escort due to bizarre behavior.? Police were called to the scene and found the patient in a parking lot of a deserted building making many nonsensical statements and alleging that he was involved with homeland security and other similar pro proclamation's.? Police also noted that he was waving around what appeared to be a handgun.? He complied with the request that he put the object down which was later discovered to be a air soft CO2 pistol.? And still continued to make rather bizarre statements for which they have provided an affidavit.? They notified EMS who arrived on scene and assisted with transportation to the emergency department. The patient states to me that he left [facility] in route to [facility].? States he was headed to [place] as well to visit family prior to leaving for [place].? 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 He does admit to having mental health issues with prior hospitalizations.? He states he has been taking his Seroquel is clonazepam as well as 1 other medication faithfully but has been weaning those down somewhat.? He states he has been doing this in concert with his prescribing physician.? He apparently also uses CBD oil in an attempt to treat himself.? He states he has had a drinking problem the past but only drinks rarely at this time.? He denies any other illicit substances.? He further denies any thoughts of self-harm.? He denies any recent illness cough cold fever trauma etc. MD complaint: altered mental status Associated symptoms: Reports delusions; Deny homicidal ideation or suicidal ideation Treatments prior to arrival: physical restraints. He was admitted to the neuropsychiatric unit for definitive treatment of those issues.? He presents today as a limited historian due to irritability and psychosis.? He did report that he has been hospitalized between 5 and 10 times in his life.? He reported that he has been on every medication and that none of them helped and in fact they made it worse.? He was noted on the unit with bizarre behaviors including marching style and making turns as if he is in a march.? When asked about the walking behavior he identified that he just joined the [employer] just the other day.? When identified that he was 45 years old and likely outside of the zone of consideration for active he just gave a inappropriate laugh.? He later had a aggressive outburst where he ended up destroying property as he went into the shower room and pulled of the sprinkler.? He did receive a as needed medication at that time.? He was resistant to answering additional questions in the interview he did share that his last medications were Zoloft, Seroquel and Klonopin and that he might be open to restarting those but unsure about the Klonopin.? He denied that drug use was playing a role in his presentation but also did not feel like there was anything wrong with his presentation.? I reviewed the concerns listed on the affidavits from the police officers and he downplayed what was being reported.? We discussed that a 96-hour hold was possible given concerns about his psychosis. Per his 11/17/2017 [facility] inpatient psychiatric evaluation: Date of Service: Nov 17, 2017 Chief Complaint: I came in last night tryin' to get help, gave me somethin' for my nerves, and I had no ride home. HPI: HPI: The patient is a 42-year-old male who initially presented to the [facility] ER on 11/16/2017 requesting admission to the [facility] for anxiety and depression.? He reported that he has conversion disorder and had been having increased stuttering episodes related to anxiety.? He denied having any suicidal/homicidal thoughts or hallucinations and was instructed to follow-up with his established outpatient provider for medication adjustment and/or psychiatric referral or alternatively to follow-up at [facility] walk-in appointment at 7:30 AM today.? He was instructed not to use drugs or alcohol. The patient was irritated that he did not get admitted as requested and left the hospital but did not have any ride home.? He reports that he has [place] Medicaid so he knew that [facility] would not accept his insurance if he did a walk-in this morning.? He reports that after leaving the ER, he went and drank some alcohol and devised a plan to obtain a paperboard boxes estimator in order to make is scene in the emergency room in order to get admitted to the psychiatric hospital.? If I had no intention of hurting myself or anyone else or I wasn't hallucinating, they weren't going to admit me.? I had no intention of hurting anyone else, but I would've cut myself if I had to.? I needed help and they wouldn't help me. ? After returning to the ER a few hours after his first discharge, he demanded that the ER physician admit him to the hospital threatening to kill himself if discharged.? After interview, the patient then pulled out the paperboard boxes estimator in front of the ER staff gesturing/indicating that he would cut himself yelling is this what I have to do to be admitted? ? He handed over the paperboard boxes estimator to staff who were present at the time and did not injure himself.? He subsequently was given Haldol 5 mg for agitation and admitted to the NPU. The patient is unable to clearly articulate why he was so intent on being admitted to the hospital.? He gives a tangential history indicating that he has a history of prior psychiatric admissions to [facility] and another hospital in [place].? Reports he lives with his dad and can't hold a job or keep his own home.? Reports he has been to an adult stabilization house.? Reports that various providers have diagnosed him with numerous different psychiatric illnesses ranging from schizoaffective disorder versus depression vs. Bipolar I or II as well as anxiety.? He reports that he is been currently treated by a primary care nurse practitioner named Liz Woods in [place], [place].? He reports that he did request a medication change from her 2 days ago and she added a Seroquel 150mg dose in the AM , but he never tried it to see if it would help his anxiety.? Reports in the past he has had a history of restless legs on higher Seroquel doses and wants to be in a hospital setting to monitor how he will react to any medications rather than waiting for an outpatient follow-up appointment. Psychiatric review of systems:? reports hx hallucinations at one point years ago but denies any recently.? He denies any homicidal ideation and reports he probably would not have harmed anyone with his paperboard boxes estimator but was willing to cut himself if necessary to be granted admission to the hospital.? He currently denies any suicidal ideation but has made suicidal threats with a weapon in the hospital now requiring a 96 hour hold and antipsychotic restraint.? He endorses some feelings of depression and helplessness, agitation, self-esteem issues.? Reports he feels more depressed when he drinks alcohol.? Endorses some vague generalized anxiety which increases and leads to stammering speech when he is not given his way.? He is vague but does not endorse any overt history of past manic episode.? He generally sleeps okay when he takes his Seroquel at bedtime dose. Past psychiatric history: No current psychiatrist/therapist.? Numerous past psychiatric diagnoses which have been inconsistent.? Past meds: over 40 of 'em or more including antidepressants and mood stabilizers.? Zyprexa, Latuda- unsure response.? Reports his current medication regimen has been the most helpful for him and he is hesitant to make any significant changes.? Hx ECT X3 stopped due to inefficacy 2016 with memory loss.? Reports 5-6 prior psych admissions but denies any hx SA. Past medical history: cluster BHAGAT, denies hx TBI/ seizures, 2 right knee and 1 left knee surgery scopes for meniscial tears, right shoulder rotator cuff tear.? Denies history of seizures. Family history:? 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 Alcohol- daily a pint of rum 750cc, denies history of complicated alcohol withdrawal MJ occ. tobacco 1.5PPD. Legal- denies. Hospital Course Hospital Course He very slowly acclimated to the individual, group and milieu therapies provided. He presented quite psychotic but ultimately agreed to oral Invega which was switched to Invega Sustenna and he received both the loading doses. The second dose of 156 mg IM to the deltoid was given 4 days early in keeping with the package insert that can be done to ensure that the injection is not missed. Given his logical situation and his attempt to go to a new area for at least a few months this was important. He was given a prescription for all of his medications including the Invega Sustenna 156 mg 30 days so that he can take to the pharmacy of his choice. He was given paperwork for the indigent program and attempt to ensure that he can get the medication regardless of where he is given his financial situation. He had marked improvement during his stay with psychosis resolving. During the hospitalization, patient had routine laboratory studies which were within normal limits except for few outliers. Additionally there was a general medical evaluation which was also within normal limits and revealed no new acute processes. Discharge Summary: At the time of discharge, he denied psychosis or lethality. Mood and anxiety were well managed. Patient endorsed a plan to avoid all drugs of abuse and follow-up with the aftercare recommendations of the treatment team. Patient was evaluated and deemed to be absent credible lethality, and had achieved the maximum benefit from an inpatient hospitalization, so was discharged. Involuntary Hold Information 96 Hour Hold: 96 Hour Involuntary Admission: No Mental Status Exam MSE Comments: This is a slender well-developed white male with hospital scrubs on with improved grooming and adequate eye contact. No abnormal movements. More cooperative with exam in no acute distress. Speech was more spontaneous and mostly normal rate and volume. Mood described as pretty good, affect congruent. Thought process mostly organized. Thought content: Patient denied suicidal or homicidal ideation, there were no delusions reported and no clear delusions noted, he denied auditory or visual hallucinations. Attention and concentration were improving and memory was more reliable but none were formally tested. He is alert and oriented x 3. Insight, judgment and impulse control are all improving. Discharge Data Studies Completed and Pending: Completed Studies During Hospitalization Category Date Time Status CT head wo con* [id number] Stat Cat Scan 10/15/21 15:05 Completed Radiology Impressions Head CT 10/15/21 15:05 IMPRESSION: 1. No acute intracranial findings. 2. Sinus findings as above. Laboratory Results WBC 8.3 10^3/uL (4.0- 10.0) 10/15/21 14:52 RBC 4.43 10^6/uL (4.1 -5.3) 10/15/21 14:52 Hgb 14.7 g/dL (11.7-1 6.6) 10/15/21 14:52 Hct 42.9 % (42.0-52.0 ) 10/15/21 14:52 MCV 96.8 fl (80-94) H 10/15/21 14:52 MCH 33.2 pg (28.0-34. 0) 10/15/21 14:52 MCHC 34.3 g/dL (30.0-3 6.0) 10/15/21 14:52 RDW 12.6 % (12.1-15.1 ) 10/15/21 14:52 Plt Count 289 10^3/cmm (130 -400) 10/15/21 14:52 MPV 9.3 fL (7.4-10.4) 10/15/21 14:52 Neut % (Auto) 63.0 % 10/15/21 14:52 Lymph % (Auto) 23.8 % 10/15/21 14:52 [place] % (Auto) 8.9 % 10/15/21 14:52 Eos % (Auto) 3.4 % 10/15/21 14:52 Baso % (Auto) 0.8 % 10/15/21 14:52 Neut # (Auto) 5.20 10^3/uL (1.8 -7.7) 10/15/21 14:52 Lymph # (Auto) 2.0 10^3/uL (0.8- 4.8) 10/15/21 14:52 [place] # (Auto) 0.7 10^3/uL (0.2- 0.9) 10/15/21 14:52 Eos # (Auto) 0.3 10^3/uL (0.0- 0.8) 10/15/21 14:52 Baso # (Auto) 0.1 10^3/uL (0.0- 0.1) 10/15/21 14:52 Nucleated RBC % (a uto) 0 % 10/15/21 14:52 Nucleated RBCs # 0.0 /100WBC 10/15/21 14:52 Sodium 141 mmol/L (136-1 45) 10/15/21 14:52 Potassium 3.7 mmol/L (3.5-5 .1) 10/15/21 14:52 Chloride 103 mmol/L (98-10 7) 10/15/21 14:52 Carbon Dioxide 26 mmol/L (22-29) 10/15/21 14:52 Anion Gap 15.7 (5-19) 10/15/21 14:52 BUN 8 mg/dL (6-20) 10/15/21 14:52 Creatinine 0.8 mg/dL (0.7-1. 2) 10/15/21 14:52 GFR Calculation 104.5 mL/min (90- 130) 10/15/21 14:52 Glucose 124 mg/dL (65-115 ) H 10/15/21 14:52 POC Glucose 116 mg/dL (70-110 ) H 10/15/21 15:13 Calculated Osmolal ity 292 mOsm/kg (285- 295) 10/15/21 14:52 Calcium 9.4 mg/dL (8.5-10 .5) 10/15/21 14:52 Total Bilirubin 0.2 mg/dL (0.15-1 .2) 10/15/21 14:52 AST 15 U/L (0-40) 10/15/21 14:52 ALT 11 U/L (0-41) 10/15/21 14:52 Alkaline Phosphata se 81 IU/L (40-130) 10/15/21 14:52 Total Protein 6.8 g/dL (6.6-8.7 ) 10/15/21 14:52 Albumin 4.6 g/dL (3.5-5.2 ) 10/15/21 14:52 Globulin 2.2 g/dL (1.3-4.6 ) 10/15/21 14:52 Salicylates < 0.3 mg/dL (3-10 ) L 10/15/21 14:52 Urine Opiates Scre en Negative ng/mL (N egative) 10/15/21 14:47 Acetaminophen < 5.0 ug/mL (10-3 0) L 10/15/21 14:52 Ur Barbiturates Sc reen Negative ng/mL (N egative) 10/15/21 14:47 Ur Phencyclidine S crn Negative ng/mL (N egative) 10/15/21 14:47 Ur Amphetamines Sc reen Negative ng/mL (N egative) 10/15/21 14:47 U Benzodiazepines Scrn Negative ng/mL (N egative) 10/15/21 14:47 Urine Cocaine Scre en Negative ng/mL (N egative) 10/15/21 14:47 U Marijuana (THC) Screen Positive ng/mL (N egative) H 10/15/21 14:47 Ethyl Alcohol < 10 mg/dL (0-10) 10/15/21 14:52 SARS-CoV-2 Ag (Rap id) Negative (Negati ve) 10/15/21 15:19 Vitals: Last Vital Signs Temp 97.8 F 10/25/21 14:32 Pulse 86 10/25/21 14:32 Resp 18 10/25/21 14:32 BP 147/76 10/25/21 14:32 Pulse Ox 96 10/25/21 14:32 O2 Del Method 10/25/21 13:52 Discharge Plan Discharge Patient Disposition: Home Condition: Stable Prescriptions: New quetiapine 100 mg Tablet 100 mg PO BEDTIME 30 Days Qty: 30 1RF hydroxyzine pamoate 25 mg Capsule 50 mg PO Q6H PRN (Reason: Anxiety) 30 Days Qty: 120 1RF Invega Sustenna 156 mg/mL syringe 156 mg IM Q30D 30 Days Qty: 1 2RF Rx Instructions: Next injection due 11/27/21 Discontinued clonazepam 0.5 mg tablet 0.25 - 0.5 mg PO DAILY sertraline 100 mg tablet 100 mg PO DAILY baclofen 20 mg tablet 20 mg PO TID quetiapine 400 mg tablet 600 mg PO BEDTIME Discharge Orders: Discharge Order (Routine); Ordered 10/25/21 Ordered By: Shady Ortiz [facility] [Other] - 11/20/21 1:45 pm (New patient appointment. ) Kris Kumar MD [Primary Care Provider] - Discharge Diet: Regular Discharge Activity: Resume usual activity Patient Instructions: Paliperidone (By injection) (Invega Sustenna, Invega Trinza, Invega..., Opioid Safety Discharge Attestations NPU Time Spent in Discharge Care*: less than 30 min Specific Discharge Activities: Specific discharge activities: educating patient, discussing with block and case maker/social workers/dc planners, documenting/other paperwork and evaluating patient/reviewing data Coding Level of Care Code Acute Chg FW DC note Diagnoses Acute psychosis F23 Bipolar disorder F31.9 Elevated blood pressure, situational R03.0
== END 2021-10-25 15:38 | disposition home or self-care (01) | DRG 885 ==
LOC: ER 17:48 → NP 19:44
PROVIDERS: Admitting Provider Psychiatry & Neurology Psychiatry; Emergency Provider Emergency Medicine; PCP Family Medicine; Visit Provider Psychiatry & Neurology Psychiatry
DX: F23 Brief psychotic disorder (principal); F31.9 Bipolar disorder, unspecified; R03.0 Elevated blood-pressure reading, without diagnosis of hypertension; Z81.8 Family history of other mental and behavioral disorders
CPT/HCPCS: 36416; 70450; 80053; 80306; 80307; 82962; 85025; 87426; 93005; 96372; 97150; 97165; 99285; J1200; J1630; J2060

== ENCOUNTER 2021-12-13 19:34 | Emergency (ER) | payer OTHER, SELFPAY ==
[2021-12-13 19:40] VITALS: BP 176/110; PULSE 110; RESP 18; TEMP 37.1; O2SAT 96; BMI 19.2
--- NOTE | 2021-12-13 19:56 | ED_ITS ---
Documented by User: Ruiz Hassan MD 12/13/21 21:39 HPI - General Adult General: Chief complaint: Psychiatric Symptoms Stated complaint: Psych Eval Time Seen by Provider: 12/13/21 19:51 History of Present Illness: HPI: [46]yo patient w/ hx of depression presenting to the emergency room with severe depression. Patient had thoughts about hanging himself earlier today and almost completed it but decided against it is last-minute. On arrival, the patient is AAOx3 and cooperative with my evaluation. No focal complaints of chest pain, shortness of breath, pa lpitations, N/V, focal GI/ complaints. Currently denies HI. No complaints of hallucinations. Onset: acute Duration: ongoing Location: home Severity: severe Associated symptoms: Deny chest pain, dyspnea, nausea, rash, palpitations or vomiting Review of Systems Const: Denies: fever(s) or chills Eyes: Denies: change in vision ENMT: Denies: mouth pain Card: Denies: chest pain or palpitations Resp: Denies: dyspnea or non-productive cough GI: Denies: abdominal pain, nausea, vomiting or diarrhea : Denies: dysuria Musc: Denies: extremity pain Skin/Breast: Denies: rash or new lesions Neuro: Denies: weakness in extremities Psych: Reports: depression and suicidal ideation Colin/Lymph: Denies: easy bruising PFSH ED 2 PFSH: Medical History Depression with suicidal ideation Social History Smoking and tobacco status: never smoked Alcohol intake: never Substance/Drug Use: never Physical Exam Const: COMMON NORMALS: alert HENMT: COMMON NORMALS: atraumatic HEAD & SCALP: atraumatic MOUTH: moist mucous membranes not abnormal Eye: COMMON NORMALS: EOMs intact bilaterally and conjunctivae normal CONJUNCTIVA: Yes conjunctivae normal Neck/C-Spine: COMMON NORMALS: full ROM and supple Resp: COMMON NORMALS: normal respiratory effort and clear to auscultation bilaterally AUSCULTATION: clear to auscultation bilaterally Cardio: COMMON NORMALS: regular rate RATE: regular rate GI: COMMON NORMALS: Soft to palpation and non-tender PALPATION: Yes Soft to palpation Extremity: COMMON NORMALS: full ROM Neuro: SENSORIUM/ORIENTATION: Yes alert MOTOR EXAM: No Abnormal motor strength present and Other motor observations present (no focal motor deficits) Psych: SPEECH: Yes minimal MOOD & AFFECT: Yes depressed mood, Yes tearful and Yes fearful Course Vital Signs: Vital signs: Vital Signs Temperature 98.9 F 12/14/21 00:00 Pulse Rate 76 12/14/21 04:00 Respiratory Rate 16 12/14/21 04:00 Blood Pressure 116/80 12/14/21 04:00 Pulse Oximetry 95 12/14/21 04:00 Oxygen Delivery Me thod 12/13/21 19:40 MDM - General Adult Medical Decision Making [46]yo patient w/ hx of depression presenting for depression and near suicide attempt. HDS, exam within normal limit Thoughts are linear and organized, and the patient has no AH/VH, or HI. Explained it is under involuntary commitment for concerns of suicidality. Patient received 1mg of ativan for anxiety Clinically the patient displays no overt toxidrome; they are well appearing, with low suspicion for toxic ingestion given history and exam. Symptoms unlikely 2/2 anemia, hypothyroidism, infection, or ICH. Workup: CBC, CMP, Lipase, salicylate/tylenol, XR chest, serum ethanol, TSH/free T4, EKG, covid antigen, UDS Lab findings: wnl, +marijuana in the urine [9:37pm] On reassessment, labs and workup wnl. Patient is hemodynamically stable with no acute medical complaints. Case discussed with psychiatric provider Dr. Ortiz at [facility] psych inpatient with recommendation for admission. We currently does not have any psychiatric beds at this time in our hospital. Disposition: Xfer to psych facility for stabiliation Lab Data : 12/13/21 20:16 12/13/21 20:16 Radiology Impressions Chest X-Ray 12/13/21 20:02 IMPRESSION: Negative chest radiograph. Laboratory Results WBC 10.8 10^3/uL (4.0-10.0) H 12/13/21 20:16 RBC 4.18 10^6/uL (4.1-5.3) 12/13/21 20:16 Hgb 13.9 g/dL (11.7-16.6) 12/13/21 20:16 Hct 39.2 % (42.0-52.0) L 12/13/21 20:16 MCV 93.8 fl (80-94) 12/13/21 20:16 MCH 33.3 pg (28.0-34.0) 12/13/21 20:16 MCHC 35.5 g/dL (30.0-36.0) 12/13/21 20:16 RDW 11.6 % (12.1-15.1) L 12/13/21 20:16 Plt Count 214 10^3/cmm (130-400) 12/13/21 20:16 MPV 9.1 fL (7.4-10.4) 12/13/21 20:16 Neut % (Auto) 81.9 % 12/13/21 20:16 Lymph % (Auto) 10.6 % 12/13/21 20:16 [place] % (Auto) 5.8 % 12/13/21 20:16 Eos % (Auto) 0.8 % 12/13/21 20:16 Baso % (Auto) 0.5 % 12/13/21 20:16 Neut # (Auto) 8.81 10^3/uL (1.8-7.7) H 12/13/21 20:16 Lymph # (Auto) 1.1 10^3/uL (0.8-4.8) 12/13/21 20:16 [place] # (Auto) 0.6 10^3/uL (0.2-0.9) 12/13/21 20:16 Eos # (Auto) 0.1 10^3/uL (0.0-0.8) 12/13/21 20:16 Baso # (Auto) 0.1 10^3/uL (0.0-0.1) 12/13/21 20:16 Nucleated RBC % (auto) 0 % 12/13/21 20:16 Nucleated RBCs # 0.0 /100WBC 12/13/21 20:16 Sodium 139 mmol/L (136-145) 12/13/21 20:16 Potassium 3.8 mmol/L (3.5-5.1) 12/13/21 20:16 Chloride 100 mmol/L (98-107) 12/13/21 20:16 Carbon Dioxide 27 mmol/L (22-29) 12/13/21 20:16 Anion Gap 15.8 (5-19) 12/13/21 20:16 BUN 12 mg/dL (6-20) 12/13/21 20:16 Creatinine 0.7 mg/dL (0.7-1.2) 12/13/21 20:16 GFR Calculation 121.4 mL/min (90-130) 12/13/21 20:16 Glucose 97 mg/dL (65-115) 12/13/21 20:16 Calculated Osmolality 288 mOsm/kg (285-295) 12/13/21 20:16 Calcium 9.2 mg/dL (8.5-10.5) 12/13/21 20:16 Total Bilirubin 0.2 mg/dL (0.15-1.2) 12/13/21 20:16 AST 11 U/L (0-40) 12/13/21 20:16 ALT 10 U/L (0-41) 12/13/21 20:16 Alkaline Phosphatase 83 U/L (40-130) 12/13/21 20:16 Total Protein 6.9 g/dL (6.6-8.7) 12/13/21 20:16 Albumin 4.7 g/dL (3.5-5.2) 12/13/21 20:16 Globulin 2.2 g/dL (1.3-4.6) 12/13/21 20:16 Lipase 22 U/L (13-60) 12/13/21 20:16 Vitamin B12 602 pg/mL (232-1245) 12/14/21 02:26 Folate 11.3 ng/mL (4.5-32.2) 12/14/21 02:26 TSH 1.44 uIU/mL (0.27-4.20) 12/13/21 20:16 Free T4 0.87 ng/dL (0.82-1.77) 12/13/21 20:16 Urine Color Yellow (Yellow) 12/14/21 02:54 Urine Appearance Clear (CLEAR) 12/14/21 02:54 Urine pH 7 (5-7) 12/14/21 02:54 Ur Specific [place] 1.005 (1.005-1.030) 12/14/21 02:54 Urine Protein Neg (Negative) 12/14/21 02:54 Urine Glucose (UA) Norm (Normal) 12/14/21 02:54 Urine Ketones Negative (Negative) 12/14/21 02:54 Urine Blood 3+ (Negative) H 12/14/21 02:54 Urine Nitrate Negative (Negative) 12/14/21 02:54 Urine Bilirubin Neg (Negative) 12/14/21 02:54 Urine Urobilinogen Neg mg/dL (Negative) 12/14/21 02:54 Ur Leukocyte Esterase Negative (Negative) 12/14/21 02:54 Urine RBC 15-25 /hpf (0-2) H 12/14/21 02:54 Urine WBC 0-4 /hpf (0-5) H 12/14/21 02:54 Ur Squamous Epith Cells 0-4 /hpf (0-5) H 12/14/21 02:54 Amorphous Sediment Not Reportable 12/14/21 02:54 Urine Bacteria None /hpf (NONE) 12/14/21 02:54 Salicylates < 0.3 mg/dL (3-10) L 12/13/21 20:16 Urine Opiates Screen Negative ng/mL (Negative) 12/13/21 19:55 Acetaminophen < 5.0 ug/mL (10-30) L 12/13/21 20:16 Ur Barbiturates Screen Negative ng/mL (Negative) 12/13/21 19:55 Ur Phencyclidine Scrn Negative ng/mL (Negative) 12/13/21 19:55 Ur Amphetamines Screen Negative ng/mL (Negative) 12/13/21 19:55 U Benzodiazepines Scrn Negative ng/mL (Negative) 12/13/21 19:55 Urine Cocaine Screen Negative ng/mL (Negative) 12/13/21 19:55 U Marijuana (THC) Screen Positive ng/mL (Negative) H 12/13/21 19:55 Ethyl Alcohol < 10 mg/dL (0-10) 12/13/21 20:16 RPR Nonreactive (Nonreactive) 12/14/21 02:26 RPR Titer/FTA Cancelled 12/14/21 02:26 RPR w/Rflx to Titer Cancelled 12/14/21 02:26 SARS-CoV-2 Ag (Rapid) negative (Negative) 12/13/21 20:47 Discharge Plan Discharge Patient Disposition: Xfer Psychiatric Hosp Clinical Impression: Suicidal ideation, Bipolar disorder Condition: Stable Prescriptions: No Action quetiapine 100 mg Tablet 100 mg PO BEDTIME 30 Days Qty: 30 1RF hydroxyzine pamoate 25 mg Capsule 50 mg PO Q6H PRN (Reason: Anxiety) 30 Days Qty: 120 1RF clonazepam 0.5 mg tablet 0.5 mg PO DAILY PRN (Reason: Anxiety) baclofen 20 mg tablet 20 mg PO TID PRN (Reason: Muscle Spasticity) Invega 1 tab PO QAM Referrals: Kris Kumar MD [Primary Care Provider] - Coding Level of Care Code ED Engine Lathe Set Up Operator Tool for Chg Fwd Exam Comprehensive Documented by User: Alexander Ahmadi DO 12/14/21 14:04 HPI - General Adult General: Chief complaint: Psychiatric Symptoms Stated complaint: Psych Eval Time Seen by Provider: 12/13/21 19:51 PFSH ED PFSH: Medical History Depression with suicidal ideation Social History Smoking and tobacco status: never smoked Alcohol intake: never Substance/Drug Use: never Course Vital Signs: Vital signs: Vital Signs Temperature 98.9 F 12/14/21 00:00 Pulse Rate 76 12/14/21 04:00 Respiratory Rate 16 12/14/21 04:00 Blood Pressure 116/80 12/14/21 04:00 Pulse Oximetry 95 12/14/21 04:00 Oxygen Delivery Me thod 12/13/21 19:40 MDM - General Adult Medical Decision Making [46]yo patient w/ hx of depression presenting for depression and near suicide attempt. HDS, exam within normal limit Thoughts are linear and organized, and the patient has no AH/VH, or HI. Explained it is under involuntary commitment for concerns of suicidality. Patient received 1mg of ativan for anxiety Clinically the patient displays no overt toxidrome; they are well appearing, with low suspicion for toxic ingestion given history and exam. Symptoms unlikely 2/2 anemia, hypothyroidism, infection, or ICH. Workup: CBC, CMP, Lipase, salicylate/tylenol, XR chest, serum ethanol, TSH/free T4, EKG, covid antigen, UDS Lab findings: wnl, +marijuana in the urine [9:37pm] On reassessment, labs and workup wnl. Patient is hemodynamically stable with no acute medical complaints. Case discussed with psychiatric provider Dr. Ortiz at [facility] psych inpatient with recommendation for admission. We currently does not have any psychiatric beds at this time in our hospital. Disposition: Xfer to psych facility for stabiliation 12/14/2021 2:03 PM Care assumed at change of shift patient has been stable throughout the day. Talked to Dr. Jimenez at [facility] they will accept patient on transfer. Patient transferred via ambulance. Medical Records I reviewed the patient's medical records. Lab Data I reviewed the patient's lab results. : 12/13/21 20:16 12/13/21 20:16 Radiology Impressions Chest X-Ray 12/13/21 20:02
--- NOTE | 2021-12-13 20:02 | XRR_ITS ---
PROCEDURE INFORMATION: Exam: XR Chest Exam date and time: 12/13/2021 8:12 PM Age: 46 years old Clinical indication: Other: [facility]; Additional info: Psych TECHNIQUE: Imaging protocol: Radiologic exam of the chest. Views: 1 view. COMPARISON: CR XR chest 1V [id number] 11/16/2017 5:07 PM FINDINGS: Lungs: Lungs are clear bilaterally. Pleural spaces: No pleural effusion. No pneumothorax. Heart/Mediastinum: The cardiac silhouette and mediastinal contours are unremarkable. Bones/joints: Unremarkable for age. XR/XR chest 1V portable [id number] IMPRESSION: Negative chest radiograph.
[2021-12-13 20:21] LABS: Basophils # 0.1 10^3/uL (0.0-0.1); Basophils % 0.5 %; Eosinophils # 0.1 10^3/uL (0.0-0.8); Eosinophils % 0.8 %; Hematocrit 39.2 % (42.0-52.0); Hemoglobin 13.9 g/dL (11.7-16.6); Lymphocytes # 1.1 10^3/uL (0.8-4.8); Lymphocytes % 10.6 %; Mean Corpuscular HGB Conc 35.5 g/dL (30.0-36.0); Mean Corpuscular Hemoglobin 33.3 pg (28.0-34.0); Mean Corpuscular Volume 93.8 fl (80-94); Mean Platelet Volume 9.1 fL (7.4-10.4); Monocytes # 0.6 10^3/uL (0.2-0.9); Monocytes % 5.8 %; Neutrophils # 8.81 10^3/uL (1.8-7.7); Neutrophils % 81.9 %; Nucleated Red Blood Cells % 0 %; Platelet Count 214 10^3/cmm (130-400); Red Blood Count 4.18 10^6/uL (4.1-5.3); Red Cell Distribution Width 11.6 % (12.1-15.1); White Blood Count 10.8 10^3/uL (4.0-10.0)
[2021-12-13 20:25] LABS: Amphetamines Screen Urine Negative (Negative); Barbiturates Screen Urine Negative (Negative); Benzodiazepines Screen Urine Negative (Negative); Cocaine Screen Urine Negative (Negative); Opiate Screen Urine Negative (Negative); PCP Screen Urine Negative (Negative); THC Screen Urine Positive (Negative)
--- NOTE | 2021-12-13 20:44 | ECG_ITS ---
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 Measurements Intervals [place] Rate: 76 P: 79 OH: 131 QRS: 69 QRSD: 117 T: 82 QT: 374 QTc: 422 Interpretive Statements SINUS RHYTHM MODERATE INTRAVENTRICULAR CONDUCTION DELAY [110+ ms QRS DURATION] Compared to ECG 10/15/2021 14:53:45 Intraventricular conduction delay now present Short OH interval no longer present Electronically Signed On 12-14-2021 21:19:38 CDT by Hilda Saavedra M.D. [id number]
[2021-12-13 20:50] LABS: Alanine Aminotransferase 10 U/L (0-41); Albumin Level 4.7 g/dL (3.5-5.2); Alkaline Phosphatase 83 U/L (40-130); Anion Gap 15.8 (5-19); Aspartate Amino Transferase 11 U/L (0-40); Blood Urea Nitrogen 12 mg/dL (6-20); Calcium 9.2 mg/dL (8.5-10.5); Carbon Dioxide 27 mmol/L (22-29); Chloride 100 mmol/L (98-107); Free T4 Free Thyroxine 0.87 ng/dL (0.82-1.77); Globulin 2.2 g/dL (1.3-4.6); Glomerular Filtration Rate 121.4 mL/min (90-130); Glucose 97 mg/dL (65-115); Lipase 22 U/L (13-60); Osmolality Calculated 288 mOsm/kg (285-295); Potassium 3.8 mmol/L (3.5-5.1); Sodium 139 mmol/L (136-145); Thyroid Stimulating Hormone 1.44 uIU/mL (0.27-4.20); Total Bilirubin 0.2 mg/dL (0.15-1.2); Total Protein 6.9 g/dL (6.6-8.7)
[2021-12-13 20:58] LABS: Acetaminophen < 5.0 ug/mL (10-30); Alcohol Level < 10 mg/dL (0-10); Salicylate < 0.3 mg/dL (3-10)
[2021-12-13 21:25] LABS: SARS Covid-2 Antigen negative (Negative)
[2021-12-13] MEDS: LORazepam 1 mg Tablet PO (22:17)
[2021-12-14] VITALS: BP 107/61; PULSE 71; RESP 16; TEMP 37.2; O2SAT 95
--- NOTE | 2021-12-14 02:57 | PC.NURSE ---
@ [phone] spoke with Fili Coles and they requested chart to be faxed after obtaining UA, Folate, B12, RPR.
--- NOTE | 2021-12-14 03:02 | PC.NURSE ---
Wait list: [place], [facility] [place] Faxed chart to: Fili Coles, [facility], [facility], [facility]
[2021-12-14 03:18] LABS: Vitamin B12 602 pg/mL (232-1245)
[2021-12-14 03:19] LABS: Folate Level 11.3 ng/mL (4.5-32.2)
[2021-12-14 03:43] LABS: Add Urine Microscopic? YES; Bilirubin Urine Neg (Negative); Blood Urine 3+ (Negative); Glucose Urine UA Norm (Normal); Ketones Urine Negative (Negative); Leukocyte Esterase Urine Negative (Negative); Nitrate Urine Negative (Negative); Protein Urine Neg (Negative); Specific Gravity, Urine 1.005 (1.005-1.030); Urine Appearance Clear (CLEAR); Urine Color Yellow (Yellow); Urobilinogen Urine Neg (Negative); pH Urine 7 (5-7)
[2021-12-14 03:44] LABS: Add Urine Culture? Yes; RBC Urine 15-25 /hpf (0-2); Squamous Epithelial Cell Urine 0-4 /hpf (0-5); WBC Urine 0-4 /hpf (0-5)
[2021-12-14 04:00] VITALS: BP 116/80; PULSE 76; RESP 16; O2SAT 95
[2021-12-14 08:00] LABS: Rapid Plasma Reagin Syphilis Nonreactive (Nonreactive)
--- NOTE | 2021-12-14 10:26 | PC.PHAR ---
pt states he takes care of his own medications-pt states he takes invega but is unsure of the mg states when he was in [facility] he got this rx states he is unsure where he filled it at-ext med history shows quetiapine last filled 11/12/21 30d/s 400mg take 600mg hs -pt states just takes 100mg hs-pt states still takes clonazepam 0.5mg prn ext med history shows last filled 09/10/21 30d/s-notes are made in the pharmacy comment
[2021-12-14] MEDS: OLANZapine 10 mg TABLET PO (13:56)
[2021-12-14 14:22] VITALS: BP 135/81; PULSE 69; RESP 14; TEMP 36.8; O2SAT 96
[2021-12-14 16:08] VITALS: BP 135/81; PULSE 69; RESP 14; TEMP 36.8; O2SAT 96
== END 2021-12-14 16:10 ==
PROVIDERS: Emergency Medicine; Emergency Provider Family Medicine; PCP Family Medicine
DX: R45.851 Suicidal ideations (principal); F31.9 Bipolar disorder, unspecified
CPT/HCPCS: 36415; 71045; 80053; 80306; 80307; 81001; 82607; 82746; 83690; 84439; 84443; 85025; 86592; 87086; 87426; 93005; 99285